=== PATIENT | female | born 1980 | race African-American/Black ===

== ENCOUNTER 2016-02-28 07:31 | Emergency (ER) | payer SELFPAY ==
[~2016-02-28] VITALS: Ht 157.5 cm; Wt 83.0 kg
[~2016-02-28 07:31] MED LIST: CIPRO500 MG PO; CYCLOBENZAPRINE10 MG ORAL; FLAGYL500 MG ORAL; IBUPROFEN600 MG ORAL; NKM; PHENERGAN25 M1 ORAL; VICODIN 5-5001 EACH PO
[2016-02-28] MEDS ORDERED: NKM (07:40)
[2016-02-28 07:53] VITALS: BP 108/73
[2016-02-28] MEDS ORDERED: BENADRYL25 MG ORAL (07:54)
[2016-02-28] MEDS ORDERED: RANITIDINE HCL150 MG ORAL (07:54)
[2016-02-28] MEDS ORDERED: PREDNISONE20 MG ORAL (07:54)
--- NOTE | 2016-02-28 07:57 | Emergency Room Report ---
History of Present Illness General Chief Complaint: Skin Rash/Abscess Source: Patient Present Illness HPI Patient says with complaints of itching sensation on the facial and throughout the body Symptoms started 2-3 days ago Patient woke up with a sensation of puffiness to her facial area Also noticed rash in the upper lip Soon after patient began having itching feeling in the arms and legs Patient took some Benadryl with some minimal improvement As a chest pressures of breath denies any back or flank pain denies any neck pain or photophobia Patient cannot recall any contact with specific allergen Allergies: Coded Allergies: No Known Allergies (Unverified , 11/13/12) Patient History Past Medical History: see triage record Pertinent Family History: none Last Menstrual Period: 02/05/16 Now: No Reviewed Nursing Documentation: PMH: Agreed, PSxH: Agreed Nursing Documentation-PMH Past Medical History: No Stated History Hx Cardiac Problems: No - UTERINE FIBROIDS/CYSTS Review of Systems All Other Systems: negative except mentioned in HPI Physical Exam Vital Signs Date Time Temp Pulse Resp B/P Pulse Ox O2 Delivery O2 Flow Rate FiO2 02/28/16 07:37 98.1 87 16 108/73 98 Room Air Sp02 EP Interpretation: reviewed, normal General Appearance: well appearing, no apparent distress Head: normocephalic, atraumatic Eyes: bilateral eye EOMI, bilateral eye PERRL ENT: normal pharynx, no angioedema, uvula midline Neck: full range of motion, supple Respiratory: lungs clear, normal breath sounds Cardiovascular #1: regular rate, rhythm Gastrointestinal: non tender, soft Musculoskeletal: normal inspection Neurologic: alert, oriented x3, responsive Skin: other - Nonspecific mild erythematous hue in the upper maxilla bilaterally also bilateral forearm, no obvious fluctuance no blister formation Lymphatic: no adenopathy Medical Decision Making Diagnostic Impression: Primary Impression: Rash and other nonspecific skin eruption ER Course Patient has findings in line with a nonspecific dermatitis possible contact versus systemic pathology Otherwise no airway pathology compromise Patient will have symptomatic intervention and requires close outpatient followup Last Vital Signs Date Time Temp Pulse Resp B/P Pulse Ox O2 Delivery O2 Flow Rate FiO2 02/28/16 07:53 98.1 16 108/73 98 Room Air 02/28/16 07:37 87 Status: improved Disposition: HOME, SELF-CARE Condition: Improved Scripts Diphenhydramine Hcl* (BENADRYL*) 25 Mg Capsule 25 MG ORAL Q6H Y for Itching, #30 CAP Prov: BERTA DELGADILLO D.O. 02/28/16 Ranitidine Hcl* (ZANTAC*) 150 Mg Tablet 150 MG ORAL TWICE A DAY, #30 TAB Prov: BERTA DELGADILLO D.O. 02/28/16 Prednisone* (PREDNISONE*) 20 Mg Tablet 20 MG ORAL BID, #8 TAB Prov: BERTA DELGAIDLLO D.O. 02/28/16 Patient Instructions: Rash Additional Instructions: Patient is provided with the discharge instructions notified to follow up with primary doctor in the next 2-3 days otherwise return to the er with any worsening symptoms. BERTA DELGADILLO D.O. Feb 28, 2016 07:57
[2016-02-28] MEDS ORDERED: PredniSONE 20mg tab ORAL ONE (08:00)
[2016-02-28 08:33] VITALS: BP 108/73
== END 2016-02-28 08:35 | disposition home or self-care (01) ==
LOC: EMR 08:00
DX: R21 Rash and other nonspecific skin eruption (principal)
CPT/HCPCS: 99282

== ENCOUNTER 2016-06-24 17:44 | Emergency (ER) | payer SELFPAY ==
[~2016-06-24] VITALS: Ht 160 cm; Wt 83.0 kg
[~2016-06-24 17:44] MED LIST changes: +BENADRYL25 MG ORAL; +PREDNISONE20 MG ORAL; +RANITIDINE HCL150 MG ORAL
[2016-06-24] MEDS ORDERED: TESSALON PERLE100 MG ORAL (18:13)
[2016-06-24] MEDS ORDERED: AMOXICILLIN500 MG ORAL (18:13)
[2016-06-24 18:19] VITALS: BP 103/66
[2016-06-24 18:28] VITALS: BP 103/66
--- NOTE | 2016-06-24 21:07 | Emergency Room Report ---
History of Present Illness General Chief Complaint: Flu Like Symptoms Source: Patient Present Illness HPI The patient is a 35-year-old female presenting for sore throat, cough, and subjective fevers for the past 3 days. The patient does admit to sick contacts at her work similar symptoms. She denies recent febrile. Pain is described as a 9/10 dull ache to the back of the throat and is now radiating to both ears. Pain worse with swallowing . The cough is said to be productive with yellow sputum. She denies any other symptoms including rash, shortness of breath, hemoptysis, nausea, vomiting Allergies: Coded Allergies: No Known Allergies (Unverified , 11/13/12) Patient History Past Medical History: see triage record Pertinent Family History: none Last Menstrual Period: 06/09/16 Now: No Reviewed Nursing Documentation: PMH: Agreed, PSxH: Agreed Nursing Documentation-PMH Past Medical History: No Stated History Hx Cardiac Problems: No - UTERINE FIBROIDS/CYSTS Review of Systems All Other Systems: negative except mentioned in HPI Physical Exam Vital Signs Date Time Temp Pulse Resp B/P Pulse Ox O2 Delivery O2 Flow Rate FiO2 06/24/16 17:50 99.3 84 16 103/66 97 Room Air Sp02 EP Interpretation: reviewed, normal General Appearance: no apparent distress, alert, GCS 15, non-toxic Head: normocephalic, atraumatic Eyes: bilateral eye PERRL, bilateral eye normal inspection ENT: hearing grossly normal, no angioedema, normal voice, TMs + canals normal, uvula midline, tonsillar swelling, pharyngeal erythema Neck: full range of motion, supple/symm/no masses Respiratory: chest non-tender, lungs clear, normal breath sounds, no wheezing, speaking full sentences Cardiovascular #1: regular rate, rhythm, no edema Musculoskeletal: back normal, gait/station normal, normal range of motion, non- tender Neurologic: alert, oriented x3, responsive, motor strength/tone normal, sensory intact, speech normal Psychiatric: judgement/insight normal, memory normal, mood/affect normal, no suicidal/homicidal ideation Skin: normal color, no rash, warm/dry, well hydrated Lymphatic: adenopathy Medical Decision Making PA Attestation Dr. Garcias is my supervising physician. Patient management was discussed with my supervising physician Diagnostic Impression: Primary Impression: Pharyngitis, acute Qualified Codes: J02.9 - Acute pharyngitis, unspecified ER Course The patient is a 35-year-old female presenting for cough, sore throat, and fevers Differential diagnosis include but not limited to pharyngitis, sinusitis, AOM, bronchitis, PNA Physical exam: Vitals within normal limits. Afebrile. No apparent distress HEENT exam: There is bilateral tonsillar edema, erythema. Uvula midline. Moist mucous membranes. There is bilateral cervical lymphadenopathy. Lungs are clear to auscultation bilaterally Skin is warm and dry. No rash The patient will be discharged home with a prescription for amoxicillin and is given ER precautions. Patient will followup with primary care Last Vital Signs Date Time Temp Pulse Resp B/P Pulse Ox O2 Delivery O2 Flow Rate FiO2 06/24/16 18:28 99.3 84 16 103/66 97 Room Air Status: improved Disposition: HOME, SELF-CARE Condition: Improved Scripts Amoxicillin* (AMOXIL*) 500 Mg Capsule 500 MG ORAL Q12HR, #20 CAP Prov: TIMOTHY SY.A. 06/24/16 Benzonatate* (TESSALON PERLE*) 100 Mg Capsule 100 MG ORAL THREE TIMES A DAY, #15 PERLE Prov: KATLYN SYY P.A. 06/24/16 Referrals: NOT CHOSEN [facility]/MD,REFERRING (PCP) Patient Instructions: Pharyngitis Additional Instructions: I discussed my findings with the patient. All questions and concerns have been answered. Treatment and medication compliance have been addressed. I advised the patient that they need to follow up with PMD in 3-5 days. Return to ED if pain remains or worsens, cough worsens or remains, you notice blood in your sputum, you notice wheezing, you experience a fever, or if needed for any reason. Patient verbalized understanding of discharge instructions. TIMOTHY SY June 24, 2016 21:07
== END 2016-06-24 18:28 | disposition home or self-care (01) ==
LOC: EMR 18:20
DX: J02.9 Acute pharyngitis, unspecified (principal)
CPT/HCPCS: 99284

== ENCOUNTER 2017-05-18 10:28 | Emergency (ER) | payer MEDICAID, OTHER ==
[~2017-05-18] VITALS: Ht 157.5 cm; Wt 83.9 kg
[~2017-05-18 10:28] MED LIST changes: +AMOXICILLIN500 MG ORAL; +TESSALON PERLE100 MG ORAL
[2017-05-18] MEDS ORDERED: FLONASE ALLERG9.9 ML NS (11:29)
[2017-05-18] MEDS ORDERED: VENTOLIN HFA18 GM INH (11:29)
[2017-05-18] MEDS ORDERED: AUGMENTIN 875-1 EAC1 ORAL (11:29)
[2017-05-18 11:48] VITALS: BP 111/62
--- NOTE | 2017-05-18 12:18 | Emergency Room Report ---
History of Present Illness General Chief Complaint: Sore Throat Source: Patient, Family Member Present Illness HPI 36-year-old female with 2-3 days of sore throat, nasal congestion and sinus pressure, sinus headache and dry cough. Patient's family member states she always has sinus headache, congestion. Was not treated with antibiotics previously has family history of asthma as well as pediatric asthma and herself. No fever, chills, body aches. Did not get flu vaccine this year. No sick contacts. Allergies: Coded Allergies: No Known Allergies (Unverified , 11/13/12) Patient History Past Medical History: none Past Surgical History: none Pertinent Family History: asthma Social History: Denies: smoking, alcohol use, drug use Last Menstrual Period: May Now: No Immunizations: UTD Reviewed Nursing Documentation: PMH: Agreed; PSxH: Agreed Nursing Documentation-PMH Hx Cardiac Problems: No - UTERINE FIBROIDS/CYSTS Review of Systems All Other Systems: negative except mentioned in HPI Physical Exam Vital Signs Date Time Temp Pulse Resp B/P (MAP) Pulse Ox O2 Delivery O2 Flow Rate FiO2 05/18/17 10:45 98.3 79 16 111/62 96 Room Air 98.2 Sp02 EP Interpretation: reviewed, normal General Appearance: normal inspection, well appearing, no apparent distress, alert, GCS 15, non-toxic Head: normocephalic, atraumatic Eyes: bilateral eye PERRL, bilateral eye EOMI ENT: normal ENT inspection, hearing grossly normal, normal pharynx, no angioedema, normal voice, TMs + canals normal, uvula midline, moist mucus membranes Neck: normal inspection, full range of motion, supple, thyroid normal, no meningismus, no bony tend Respiratory: normal inspection, lungs clear, normal breath sounds, no rhonchi, no respiratory distress, no retraction, no accessory muscle use, no wheezing, speaking full sentences Cardiovascular #1: regular rate, rhythm, no edema, no JVD, normal capillary refill Gastrointestinal: normal inspection, normal bowel sounds, non tender, soft, no mass, no peritonitis, non-distended, no guarding, no hernia, no pulsatile mass Genitourinary: no CVA tenderness Musculoskeletal: normal inspection, back normal, normal range of motion, no calf tenderness, pelvis stable, Kiran's Sign negative Neurologic: normal inspection, alert, oriented x3, responsive, blocker and polisher gold wheel III-XII nml as tested, motor strength/tone normal, cerebellar normal, normal gait, speech normal Psychiatric: normal inspection, judgement/insight normal, mood/affect normal, no suicidal/homicidal ideation, no delusions Skin: normal inspection, normal color, no rash Lymphatic: normal inspection, no adenopathy Medical Decision Making Diagnostic Impression: Primary Impression: Sore throat Additional Impression: Sinusitis, acute frontal ER Course Vital signs stable, afebrile No evidence of bacterial infection in oropharynx, auscultation of lungs. Patient very well-appearing nonseptic appearing. Given frequent, chronic sinus infection sinus headache we'll treat empirically with antibiotics. Given childhood history and family history of asthma Y also given Ventolin as needed for cough along with Flonase for sinus congestion. Recommended PMD follow-up as needed ER course: Patient has remained stable during ED stay. Disposition: Patient is to be discharged to home. Prescriptions given are flonase, ventolin, augmenin Patient is instructed to follow up with their primary care doctor within 5 days. Strict return precautions discussed with patient such as fever, chills, worsening/severe pain, nausea, vomiting, which may indicate severe illness. Patient verbalizes understanding and agrees with plan. Please note that this Emergency Department Report was dictated using [employer] edge burnisher technology software, occasionally this can lead to erroneous entry secondary to interpretation by the dictation equipment Last Vital Signs Date Time Temp Pulse Resp B/P (MAP) Pulse Ox O2 Delivery O2 Flow Rate FiO2 05/18/17 11:48 98.2 16 111/62 96 Room Air 98.2 05/18/17 11:45 78 Status: improved Disposition: HOME, SELF-CARE Condition: Improved Scripts Albuterol Sulfate (VENTOLIN HFA) 18 Gm Hfa.aer.ad 1 PUFF INH EVERY 6 HOURS for 7 Days, #18 GM 0 Refills Prov: SHANE DANIELS M.D. 05/18/17 Fluticasone Propionate (Flonase Allergy Relief) 9.9 Ml [place].susp 9.9 ML NS BID for nasal congestion for 7 Days, #1 UNIT Prov: SHANE DANIELS M.D. 05/18/17 Amoxicillin/Potassium Clav 875-125* (AUGMENTIN 875-125 TABLET*) 1 Each Tablet 1 TAB ORAL TWICE A DAY for 7 Days, #14 TAB Prov: SHANE DANIELS M.D. 05/18/17 Referrals: NOT CHOSEN [facility]/,REFERRING (PCP) Patient Instructions: Sinusitis, Adult, [id number] SHANE DANIELS M.D. May 18, 2017 12:18
== END 2017-05-18 11:50 | disposition home or self-care (01) ==
LOC: EMR 11:17
DX: J02.9 Acute pharyngitis, unspecified (principal); J01.10 Acute frontal sinusitis, unspecified
CPT/HCPCS: 99284

== ENCOUNTER 2018-06-14 07:43 | Emergency (ER) | payer SELFPAY ==
[~2018-06-14] VITALS: Ht 157.5 cm; Wt 86.2 kg
[~2018-06-14 07:43] MED LIST changes: +AUGMENTIN 875-1 EAC1 ORAL; +FLONASE ALLERG9.9 ML NS; +VENTOLIN HFA18 GM INH
[2018-06-14 07:56] VITALS: BP 108/63
--- NOTE | 2018-06-14 08:02 | NUR ---
ED Nurse Note: Pt came in due to flu like symptoms x 1 week. Pt also c/o bilateral earache and a sore throat, w/ occasional dry cough. Pt is AAO x4, ambulatpry and VSS.
[2018-06-14] MEDS ORDERED: CLARITIN-D 241 EACH PO (08:12)
[2018-06-14 08:17] VITALS: BP 112/70
--- NOTE | 2018-06-14 08:17 | NUR ---
ER DISCHARGE NOTE: Patient is cleared to be discharged per ERMD, pt is aox4, on room air, with stable vital signs. pt was given dc and prescription instructions, pt was able to verbalize understanding, pt id band removed. pt is able to ambulate with steady gait. pt took all belongings.
--- NOTE | 2018-06-16 16:00 | Emergency Room Report ---
History of Present Illness General Chief Complaint: Upper Respiratory Illness Source: Patient, Medical Record Present Illness HPI Patient is a 37-year-old female presented for increased bilateral earache. Patient reports having increased nasal congestion as well as some hearing loss.Patient denies any fever. She the past few days. She denies recent trauma. Allergies: Coded Allergies: No Known Allergies (Unverified , 11/13/12) Patient History Past Medical History: see triage record Last Menstrual Period: 05/22/2018 Now: No : 1 Para: 1 Reviewed Nursing Documentation: PMH: Agreed; PSxH: Agreed Nursing Documentation-PMH Hx Cardiac Problems: No - UTERINE FIBROIDS/CYSTS Review of Systems All Other Systems: negative except mentioned in HPI Physical Exam Vital Signs Date Time Temp Pulse Resp B/P (MAP) Pulse Ox O2 Delivery O2 Flow Rate FiO2 06/14/18 07:56 98.2 15 108/63 93 Room Air 06/14/18 07:56 75 General Appearance: well appearing, no apparent distress, alert, GCS 15 Head: normocephalic, atraumatic ENT: hearing grossly normal, normal voice Neck: full range of motion, supple Respiratory: lungs clear, normal breath sounds, no respiratory distress, speaking full sentences Cardiovascular #1: normal inspection, no edema Gastrointestinal: normal inspection Musculoskeletal: no calf tenderness Neurologic: normal inspection, alert, oriented x3, responsive, operations director III-XII nml as tested, normal gait Psychiatric: mood/affect normal Skin: no rash Medical Decision Making Diagnostic Impression: Primary Impression: Serous otitis media ER Course Patient presented for ear pain. Differential diagnosis included was not limited to otitis media, malignant otitis externa, foreign body, cellulitis, mastoiditis, carotid dissection, myocardial infarction among others. Patient appears to have a serous otitis media. There is no evidence of erythema. Patient be given medications for symptomatic treatment. She is advised to follow-up with her primary care physician for recheck.Patient is advised to return if she had any fever worsening pain or other concerns Last Vital Signs Date Time Temp Pulse Resp B/P (MAP) Pulse Ox O2 Delivery O2 Flow Rate FiO2 06/14/18 08:17 97.9 83 17 112/70 99 Room Air Status: improved Disposition: HOME, SELF-CARE Condition: Stable Scripts Loratadine/Pseudoephedrine (CLARITIN-D 24 HOUR TABLET) 1 Each Tab.er.24h 1 TAB PO DAILY, #20 TAB Prov: Priyank Garcias MD 06/14/18 Referrals: NON PHYSICIAN (PCP) Patient Instructions: Serous Otitis Media Priyank Garcias MD June 16, 2018 16:00
== END 2018-06-14 08:17 | disposition home or self-care (01) ==
LOC: EMR 08:05
DX: H65.90 Unspecified nonsuppurative otitis media, unspecified ear (principal)
CPT/HCPCS: 99281

== ENCOUNTER 2020-01-27 12:09 | Emergency (ER) | payer OTHER ==
[~2020-01-27] VITALS: Ht 157.5 cm; Wt 85.7 kg
[~2020-01-27 12:09] MED LIST changes: +CLARITIN-D 241 EACH PO
[2020-01-27 12:53] VITALS: BP 109/75
[2020-01-27] MEDS ORDERED: Metoclopramide 10mg/2ml Inj IVP ONE (13:00)
[2020-01-27] MEDS ORDERED: DiphenhydrAMINE 50mg/ml Inj IVP ONE (13:00)
[2020-01-27 13:25] LABS: APPEARANCE,URINE SLIGHTLY CLOUDY; BILIRUBIN, URINE NEGATIVE (NEGATIVE); COLOR,URINE PALE YELLOW; GLUCOSE, URINE (UA) NEGATIVE (NEGATIVE); KETONES,URINE NEGATIVE (NEGATIVE); LEUKOCYTE ESTERASE ,URINE NEGATIVE (NEGATIVE); NITRITE,URINE NEGATIVE (NEGATIVE); PH,URINE 7 (4.5-8.0); PROTEIN,URINE NEGATIVE (NEGATIVE); UROBILINOGEN,URINE NORMAL MG/DL (0.0-1.0)
[2020-01-27 13:28] LABS: EOSINOPHILS % (AUTO) 1.2 % (0.0-3.0); HEMATOCRIT 39.9 % (37.0-47.0); HEMOGLOBIN 13.4 G/DL (12.0-16.0); MEAN CORPUSCULAR VOLUME 81 FL (80-99); MONOCYTES % (AUTO) 5.8 % (1.0-10.0); NEUTROPHILS % (AUTO) 69.1 % (45.0-75.0); PLATELET COUNT 239 K/UL (150-450); RED BLOOD COUNT 4.94 M/UL (4.20-5.40); RED CELL DISTRIBUTION WIDTH 13.4 % (11.6-14.8); WHITE BLOOD COUNT 6.3 K/UL (4.8-10.8)
[2020-01-27 13:38] VITALS: BP 112/75
[2020-01-27 13:39] LABS: ANION GAP 7 mmol/L (5-15); BLOOD UREA NITROGEN 11 mg/dL (7-18); CALCIUM 8.8 MG/DL (8.5-10.1); CARBON DIOXIDE 26 MMOL/L (21-32); CHLORIDE 103 MMOL/L (98-107); POTASSIUM 3.9 MMOL/L (3.5-5.1); SODIUM 136 MMOL/L (136-145)
[2020-01-27 13:43] LABS: ALANINE AMINOTRANSFERASE 30 U/L (12-78); ALBUMIN 3.3 G/DL (3.4-5.0); ALBUMIN/GLOBULIN RATIO 0.8 (1.0-2.7); ALKALINE PHOSPHATASE 55 U/L (46-116); ASPARTATE AMINO TRANSFERASE 22 U/L (15-37); BILIRUBIN,TOTAL 0.5 MG/DL (0.2-1.0)
--- NOTE | 2020-01-27 14:24 | Emergency Room Report ---
History of Present Illness General Chief Complaint: Abdominal Pain Source: Patient Present Illness HPI The patient presents with lower abdominal pain and heavy vaginal bleeding. She has had this happen to her once before but never had a diagnosis. She is not sure if she is at this time. The pain is rated 7-8/10. Is nonradiating. She denies any dysuria. There have been no fevers or chills. She denies nausea, vomiting and diarrhea. Her last menstruation was January 21. He will seem to be normal to her. There is no nausea, vomiting or diarrhea. She is moving her bowels normally. Patient denies exposure to Covid positive contacts. 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 Period: 01/21 Now: No Reviewed Nursing Documentation: PMH: Agreed; PSxH: Agreed Nursing Documentation-PMH Past Medical History: No History, Except For Hx Cardiac Problems: No - UTERINE FIBROIDS/CYSTS Review of Systems Constitutional: Denies: fever Respiratory: Denies: shortness of breath Cardiovascular: Denies: chest pain Gastrointestinal: Reports: see HPI Genitourinary: Reports: see HPI Musculoskeletal: Denies: back pain Skin: Denies: rash Hematologic/Lymphatic: Reports: see HPI Physical Exam Vital Signs Date Time Temp Pulse Resp B/P (MAP) Pulse Ox O2 Delivery O2 Flow Rate FiO2 01/27/20 12:19 98.4 81 17 109/75 (86) 99 01/27/20 12:53 Room Air Sp02 EP Interpretation: reviewed, normal General Appearance: well appearing, no apparent distress, GCS 15 Head: normocephalic Eyes: bilateral eye normal inspection, bilateral eye PERRL, bilateral eye EOMI ENT: other - Wearing a mask Neck: normal inspection, full range of motion, supple Respiratory: normal inspection Cardiovascular #1: regular rate, rhythm Cardiovascular #2: 2+ radial (R) Gastrointestinal: normal inspection, normal bowel sounds, non tender, no mass, non-distended Genitourinary: no CVA tenderness, deferred - For ultrasound Musculoskeletal: back normal, normal range of motion, gait/station normal Neurologic: alert, oriented x3, grossly normal Psychiatric: mood/affect normal Skin: no rash, warm/dry Medical Decision Making Diagnostic Impression: Primary Impression: Fibroids ER Course Patient presents with heavy bleeding and lower abdominal pain. Differential includes ectopic , dysfunctional uterine bleeding, urinary tract infection, fibroids, ovarian cyst amongst others. Evaluation with labs and ultrasound. Patient treated with Reglan and Benadryl. Considerations for other analgesics if test is negative. Labs with normal white count and H&H. Urinalysis clear. test negative. Although there is pyuria contamination of the urine. Ultrasound with multiple fibroids. Patient improved with treatment however still with pain. Ibuprofen administered. Discussed findings with patient and the need for outpatient follow-up. Patient stable for outpatient observation and treatment. Laboratory Tests Test 01/27/20 13:05 01/27/20 13:07 White Blood Count 6.3 K/UL (4.8-10.8) Red Blood Count 4.94 M/UL (4.20-5.40) Hemoglobin 13.4 G/DL (12.0-16.0) Hematocrit 39.9 % (37.0-47.0) Mean Corpuscular Volume 81 FL (80-99) Mean Corpuscular Hemoglobin 27.1 PG (27.0-31.0) Mean Corpuscular Hemoglobin Concent 33.5 G/DL (32.0-36.0) Red Cell Distribution Width 13.4 % (11.6-14.8) Platelet Count 239 K/UL (150-450) Mean Platelet Volume 6.9 FL (6.5-10.1) Neutrophils (%) (Auto) 69.1 % (45.0-75.0) Lymphocytes (%) (Auto) 23.0 % (20.0-45.0) Monocytes (%) (Auto) 5.8 % (1.0-10.0) Eosinophils (%) (Auto) 1.2 % (0.0-3.0) Basophils (%) (Auto) 1.0 % (0.0-2.0) Sodium Level 136 MMOL/L (136-145) Potassium Level 3.9 MMOL/L (3.5-5.1) Chloride Level 103 MMOL/L (98-107) Carbon Dioxide Level 26 MMOL/L (21-32) Anion Gap 7 mmol/L (5-15) Blood Urea Nitrogen 11 mg/dL (7-18) Creatinine 1.0 MG/DL (0.55-1.30) Estimated Glomerular Filtration Rate > 60 mL/min (>60) Glucose Level 90 MG/DL (74-106) Calcium Level 8.8 MG/DL (8.5-10.1) Total Bilirubin 0.5 MG/DL (0.2-1.0) Aspartate Amino Transferase (AST) 22 U/L (15-37) Alanine Aminotransferase (ALT) 30 U/L (12-78) Alkaline Phosphatase 55 U/L (46-116) Total Protein 7.6 G/DL (6.4-8.2) Albumin 3.3 G/DL (3.4-5.0) L Globulin 4.3 g/dL Albumin/Globulin Ratio 0.8 (1.0-2.7) L Lipase 70 U/L (73-393) L Urine Color Pale yellow Urine Appearance Slightly cloudy Urine pH 7 (4.5-8.0) Urine Specific [place] 1.010 (1.005-1.035) Urine Protein Negative (NEGATIVE) Urine Glucose (UA) Negative (NEGATIVE) Urine Ketones Negative (NEGATIVE) Urine Blood 5+ (NEGATIVE) H Urine Nitrite Negative (NEGATIVE) Urine Bilirubin Negative (NEGATIVE) Urine Urobilinogen Normal MG/DL (0.0-1.0) Urine Leukocyte Esterase Negative (NEGATIVE) Urine RBC 0-2 /HPF (0 - 2) Urine WBC 15-20 /HPF (0 - 2) H Urine Squamous Epithelial Cells Many /LPF (NONE/OCC) H Urine Bacteria Moderate /HPF (NONE) H Urine HCG, Qualitative Negative (NEGATIVE) Last Vital Signs Date Time Temp Pulse Resp B/P (MAP) Pulse Ox O2 Delivery O2 Flow Rate FiO2 01/27/20 14:58 98.4 17 112/75 99 Room Air 01/27/20 12:53 81 Status: improved Disposition: HOME, SELF-CARE Condition: Improved Scripts Ibuprofen* (MOTRIN*) 600 Mg Tablet 600 MG ORAL Q6H PRN for FOR PAIN, #20 TAB 0 Refills Prov: Klever Biggs MD 01/27/20 Referrals: [facility] (PCP) Klever Biggs MD Jan 27, 2020 14:24
[2020-01-27] MEDS ORDERED: IBUPROFEN600 M1 ORAL (14:27)
[2020-01-27 14:58] VITALS: BP 112/75
--- NOTE | 2020-01-27 15:29 | Diagnostic Imaging Report ---
Indication: Pelvic pain and vaginal bleeding. Negative test Technique: Transabdominal and transvaginal images of the pelvis. Doppler interrogation of the ovaries Comparison: 06/10/2012 Findings: The uterus measures 15.1 cm length by 8.6 cm AP. The myometrium is diffusely abnormal, demonstrating multiple fibroids. The endometrium is obscured. Cervical nabothian cyst is incidentally noted. Neither ovary can be visualized. Uterus appears larger and the fibroids more extensive than on the previous study. Impression: Enlarged fibroid uterus, with fibroids apparently increased from prior study of 2013 Nonvisualized ovaries Incidental finding cervical nabothian cyst
== END 2020-01-27 15:00 | disposition home or self-care (01) ==
LOC: EMR 13:31
DX: D25.9 Leiomyoma of uterus, unspecified (principal)
CPT/HCPCS: 36415; 76830; 76856; 80053; 81003; 81025; 83690; 85025; 86850; 86900; 86901; 87086; 87181; 96361; 96374; 96375; 99284; J1200; J2765; J7030